=== PATIENT | male | born 1935 | race Caucasian/White ===

== ENCOUNTER 2016-07-11 07:18 | Observation (INO) | payer BC ==
--- NOTE | ~2016-07-11 | HP ---
History And Physical [address] [place]. [address] NAME: ALFONSO SOLIS JR : 39 STATUS : ADM [facility] PAT#: [id number] AGE: 80 ADM/REG DATE : 07/11/16 MR#: [id number] REPORT SERV DATE: 07/11/16 DICTATED BY: DAVINA MCMILLAN DATE: 07/11/16 REPORT STATUS : Draft TRANSCRIBED BY: MODDeisy DATE: 07/11/16 DATE OF ADMISSION: 07/11/2016 CHIEF COMPLAINT: Gross hematuria. HISTORY OF PRESENT ILLNESS: Mr. Solis is a 80-year-old who recently had gross hematuria. CT scan with IV contrast was performed by his primary care doctor, this showed a thickened bladder mass along the base and right lateral wall. He presents for TURBT. 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 Submitted postop for CBI. PAST MEDICAL HISTORY: Coronary artery disease, status post CABG in the remote past; hypertension; hypercholesterolemia. SOCIAL HISTORY: . Ex-smoker. FAMILY HISTORY: Noncontributory. ALLERGIES: NONE KNOWN. MEDICATIONS: Aspirin which was held a week ago, Lipitor, Lasix, lisinopril. PHYSICAL EXAMINATION: GENERAL: A pleasant 80-year-old in no acute distress. HEENT: Sclerae anicteric. LUNGS: Clear. HEART: Regular rhythm. CHEST: Clear anteriorly. ABDOMEN: Soft, nontender, nondistended. Bladder is not palpably distended. No rebound or guarding. No right or left CVA tenderness. RECTAL: Digital rectal exam (performed in OR) small prostate, no fixation of the bladder base. LABS: White blood cell count is 4.2, hematocrit 40, platelets 202. Creatinine 1.05. PSA 3.46. IMPRESSION: A bladder tumor, status post large TURBT (greater than 5 cm). PLAN: Mr. Solis is admitted for continuous bladder irrigation. B and O suppositories will be given for spasm. We will wean his CBI over the next 24 to 48 hours. He will need to keep the Roldan catheter for 7 to 10 days. [facility]/EHSAN History And Physical [place] [id number] [place]. [address] NAME: ALFONSO SOLIS JR : 39 STATUS : ADM Hebert PAT#: [id number] AGE: 80 ADM/REG DATE : 07/11/16 MR#: [id number] REPORT SERV DATE: 07/11/16 DICTATED BY: DAVINA MCMILLAN DATE: 07/11/16 REPORT STATUS : Draft TRANSCRIBED BY: EHSAN DATE: 07/11/16 Davina Mcmillan M.D. / [id number] CC: Rashmi Prince M.D.
--- NOTE | ~2016-07-11 | OP ---
Record Of Operation [facility] [address] [place]. [address] NAME: ALFONSO SOLIS JR : 39 STATUS : ADM Hebert PAT#: [id number] AGE: 80 ADM/REG DATE : 07/11/16 MR#: [id number] REPORT SERV DATE: 07/11/16 DICTATED BY: DAVINA MCMILLAN DATE: 07/11/16 REPORT STATUS : Draft TRANSCRIBED BY: MODL DATE: 07/11/16 DATE OF PROCEDURE: 07/11/2016 PREOPERATIVE DIAGNOSIS: Bladder tumor. POSTOPERATIVE DIAGNOSIS: Bladder tumor. PROCEDURE PERFORMED: Transurethral resection of bladder tumor (greater than 5 cm). ANESTHESIA: General. ESTIMATED BLOOD LOSS: 50 mL. SPECIMENS: 1. Bladder tumor from the trigone and left lateral base. 2. Left lateral wall bladder biopsy. 3. Bladder tumor resection, bladder neck. DRAINS: A 24-Jordanian 3-way Roldan catheter. INDICATIONS: Mr. Solis is a 80-year-old with recent gross hematuria. CT scan showed a bladder mass. He presents for TURBT. TECHNIQUE: Informed consent was obtained. He was brought to the operating room. Levaquin was given preoperatively. General anesthesia was administered. Genitals and perineum were prepped and draped in the normal lithotomy position in sterile fashion. Rigid cystoscopy was performed. The urethra was normal. Prostate was nonobstructive. There was shaggy, superficial appearing papillary tumors within the prostatic urethra, more prominent at the bladder neck. Within the bladder, there was an approximately 4 cm x 8 cm area of bladder tumor involving the entirety of the trigone and left lateral wall. Tumor extended up to just adjacent to the right UO. Left UO was nonvisualized. Left lateral wall appeared thickened with a normal surface urothelium. Cystoscope was removed. I dilated the urethra with 28-Jordanian and passed a 26-Jordanian resectoscope sheath. Glycine was used for irrigation. At first, I resected the bladder neck tissue and fulgurated tumor within the prostatic urethra. These chips are evacuated and the bed of resection was fulgurated. Next, I began resection of the bladder tumors, starting at the right trigone. I used care to not resect the right orifice. Tumor was carried out from the patient's right to left. The left orifice was identified after resection. All visible tumors were resected. Bed of resection was fulgurated. I took two swipes of thickened bladder wall and the left lateral wall. This was fulgurated as well. Methylene blue was given. There was efflux of blue urine at eight minutes from the UO's. I elected not to leave ureteral stents. Neither ureter had been obstructed on CT two weeks ago. Hemostasis was confirmed under low filling pressures. I removed the resectoscope, placed a 24-Jordanian 3-way Roldan catheter. CBI was initiated. The catheter was irrigated Record Of Operation [address] [address] NAME: ALFONSO SOLIS JR : 39 STATUS : ADM Hebert PAT#: [id number] AGE: 80 ADM/REG DATE : 07/11/16 MR#: [id number] REPORT SERV DATE: 07/11/16 DICTATED BY: DAVINA MCMILLAN DATE: 07/11/16 REPORT STATUS : Draft TRANSCRIBED BY: EHSAN DATE: 07/11/16 well. Plan is for 24 to 48 hours of CBI and will leave his catheter in place for 7 to 10 days postop. He will be admitted for CBI. [facility]/EHSAN Davina Mcmillan M.D. / [id number] CC: Davina Mcmillan M.D.
[~2016-07-11 07:18] MED LIST: ASAB PO; L20 PO; LIPITOR80 MG PO; LISINOPRIL40 MG PO
[2016-07-12 06:09] LABS: HEMOGLOBIN 11.9 g/dL (13.6-17.8)
[2016-07-12 06:11] LABS: HEMATOCRIT 35.3 % (40.0-51.0)
[2016-07-12] MEDS ORDERED: PYR100B PO ×2 (13:15→13:28)
[2016-07-12] MEDS ORDERED: CIP5 PO ×2 (13:15→13:30)
[2016-07-12] MEDS ORDERED: NORCO1 TA1 PO ×2 (13:16→13:28)
[2016-07-12] MEDS ORDERED: DITRO5 PO ×2 (13:16→13:31)
[2016-10-22] MEDS ORDERED: [UNRECOGNIZED DRUG - CODE] PO (16:17)
== END 2016-07-12 13:38 | disposition home or self-care (01) ==
LOC: SDC 07:18 → SDC/OF 11:22 → 4SO 13:25
PROVIDERS: Urology
PROC: 0T5B8ZZ Destruction of Bladder, Via Natural or Artificial Opening Endoscopic (ICD-10-PCS; principal; 2016-07-11 09:00)
DX: C67.5 Malignant neoplasm of bladder neck (principal); D64.9 Anemia, unspecified; I25.10 Atherosclerotic heart disease of native coronary artery without angina pectoris; I10 Essential (primary) hypertension; E78.5 Hyperlipidemia, unspecified; E78.00 Pure hypercholesterolemia, unspecified; Z95.1 Presence of aortocoronary bypass graft; Z87.891 Personal history of nicotine dependence; Z79.82 Long term (current) use of aspirin; Z79.899 Other long term (current) drug therapy
CPT/HCPCS: 80048; 84153; 84295; 85014; 85018; 85025; 88305; 88307; 93005; A9270-GY; G0378; J2270; J2405; J3010; Q9967